=== PATIENT | male | born 1960 | race African-American/Black ===

== ENCOUNTER 2019-11-12 13:58 | Observation (INO) | payer OTHER ==
[~2019-11-12] VITALS: Ht 182.9 cm; Wt 100.4 kg
[2019-11-12 14:09] VITALS: BP 149/84; TEMP 97.2
[2019-11-12 14:42] LABS: PLATELET COUNT 216 K/uL (142-355)
[2019-11-12 14:54] LABS: POTASSIUM 4.2 mmol/L (3.6-5.2)
[2019-11-12 16:00] VITALS: BP 138/81
[2019-11-12 18:00] VITALS: BP 151/74
[2019-11-12 19:00] VITALS: BP 150/70
[2019-11-12 20:00] VITALS: BP 146/46; TEMP 101.2
[2019-11-12 21:15] VITALS: BP 146/46; TEMP 101.2; Ht 182.9 cm; Wt 100.4 kg
[2019-11-13] VITALS: BP 139/71; TEMP 99.3
[2019-11-13 04:00] VITALS: BP 142/77; TEMP 99.2
[2019-11-13] MEDS ORDERED: LISI20TA11 PO (04:13)
[2019-11-13] MEDS ORDERED: AMLODIPINE BESYLATE PO (04:14)
[2019-11-13] MEDS ORDERED: METF500T PO (04:15)
[2019-11-13] MEDS ORDERED: GLYBURIDE2.5 MG PO (04:16)
[2019-11-13] MEDS ORDERED: ALLO300T23 PO (04:17)
[2019-11-13] MEDS ORDERED: ASA LOW DOSE81 MG PO (04:18)
[2019-11-13] MEDS ORDERED: LOVASTATIN10 MG PO (04:21)
[2019-11-13 08:00] VITALS: BP 134/67; TEMP 97.8
[2019-11-13 10:27] LABS: PLATELET COUNT 165 K/uL (142-355)
[2019-11-13 10:47] LABS: POTASSIUM 4.1 mmol/L (3.6-5.2)
[2019-11-13] MEDS ORDERED: ONDA4TAB3 PO (11:24)
[2019-11-13] MEDS ORDERED: METR250T19 PO (11:25)
[2019-11-13] MEDS ORDERED: LEVAQUIN250 MG PO (11:26)
[2019-11-13 12:00] VITALS: BP 136/75; TEMP 99.2
== END 2019-11-13 12:28 | disposition home or self-care (01) ==
LOC: ED 13:58 → MED/SURG 18:25
PROVIDERS: Internal Medicine; ADMIT Student in an Organized Health Care Education/Training Program
DX: K52.89 Other specified noninfective gastroenteritis and colitis (principal); D72.828 Other elevated white blood cell count; N17.8 Other acute kidney failure; E83.42 Hypomagnesemia; E11.9 Type 2 diabetes mellitus without complications; M10.9 Gout, unspecified
CPT/HCPCS: 36415; 80048; 80053; 81000; 83605; 83690; 83735; 85027; 86850; 86900; 86901; 87040; 93005; 94760; 96360; 96361; 96365; 96366; 96367; 96372; 96375; 99220; 99284; G0378; J0295; J1650; J1956; J2270; J2405; J3475; J3490